=== PATIENT | male | born 1950 ===

== ENCOUNTER → 2017-09-04 | Outpatient (CLI) | payer OTHER | LOC: BHFA 10:15 | PROVIDERS: ATTEND Internal Medicine Interventional Cardiology | DX: R93.1 Abnormal findings on diagnostic imaging of heart and coronary circulation (principal); I25.10 Atherosclerotic heart disease of native coronary artery without angina pectoris ==

== ENCOUNTER → 2017-09-11 | Outpatient (CLI) | payer OTHER | LOC: BHFA 13:30 | PROVIDERS: ATTEND Internal Medicine Cardiovascular Disease | DX: I25.10 Atherosclerotic heart disease of native coronary artery without angina pectoris (principal); R93.1 Abnormal findings on diagnostic imaging of heart and coronary circulation | CPT/HCPCS: 78452; 93017; A9500 ==

== ENCOUNTER → 2017-09-22 | Outpatient (CLI) | payer OTHER | LOC: BHFA 14:45 | PROVIDERS: ATTEND Internal Medicine Interventional Cardiology | DX: I25.10 Atherosclerotic heart disease of native coronary artery without angina pectoris (principal) ==

== ENCOUNTER → 2018-01-13 | Outpatient (CLI) | payer OTHER | LOC: BHFA 15:15 | PROVIDERS: ATTEND Nurse Practitioner Adult Health | DX: I25.10 Atherosclerotic heart disease of native coronary artery without angina pectoris (principal); R00.2 Palpitations; R93.1 Abnormal findings on diagnostic imaging of heart and coronary circulation ==